=== PATIENT | male | born 1950 | race Caucasian/White ===

== ENCOUNTER 2016-06-13 08:29 | Day surgery (SDC) | payer OTHER, BC ==
[2016-06-13 09:02] VITALS: BMI 40.1
[2016-06-13] MEDS ORDERED: PROPOFOL 60 ML ONE (10:01)
[2016-06-13] MEDS ORDERED: LIDOCAINE HCL/PF 2% SDV 5ML VIAL ONE (10:01)
[2016-06-13 10:55] VITALS: TEMP 97.8
[2016-06-13 12:03] VITALS: BP 127/88; PULSE 61
--- NOTE | 2016-06-14 13:16 | PATH ---
Surgical Pathology Report Patient Name: ELDON GUERRA [facility]. Rec. #: [id number] /Age/Gender: 1950 (Age: 66) / M Account: [id number] Location: [facility]-ENDOSCOPY Taken: 06/13/2016 Received: 06/13/2016 Reported: 06/14/2016 Physicians: Davonte Noonan D.O. Specimen(s) Received A: BX DUODENAL BULB POLYP B: POLYP GASTRIC BODY OF STOMACH C: BX EROSION OF BODY OF STOMACH D: BX DISTAL ESOPHAGUS E: POLYPS DISTAL TRANSVERSE Clinical History Rule out reflux and fundic polyps Gastric polyps, gastritis, duodenal polyp, rule out Pyle's, colon polyps Final Diagnosis A. 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 NO DYSPLASIA/ADENOMA IDENTIFIED. B. STOMACH, BODY, POLYP, POLYPECTOMY: GASTRIC OXYNTIC MUCOSA WITH FUNDIC GLAND POLYP AND MODERATE CHRONIC GASTRITIS. IMMUNOSTAIN FOR H. PYLORI IS NEGATIVE FOR ORGANISMS. C. STOMACH, BODY, EROSION, BIOPSY: GASTRIC OXYNTIC MUCOSA WITH MILD TO MODERATE CHRONIC GASTRITIS WITH FOCAL SURFACE EROSION. IMMUNOSTAIN FOR H. PYLORI IS NEGATIVE FOR ORGANISMS. D. ESOPHAGUS, DISTAL, BIOPSY: SQUAMOCOLUMNAR JUNCTIONAL MUCOSA WITH CHRONIC INFLAMMATION AND REFLUX TYPE CHANGES. NO INTESTINAL METAPLASIA (PYLE'S ESOPHAGUS) IDENTIFIED. E. COLON, DISTAL TRANSVERSE, POLYPS, POLYPECTOMY: TUBULAR ADENOMA. SEPARATE FRAGMENT OF COLONIC MUCOSA WITH HYPERPLASTIC CHANGE. Electronically Signed Zechariah Perez M.D. Gross Description A. Received in formalin, labeled "biopsy duodenal bulb polyp" is a salgado, irregular portion of soft tissue measuring 0.1 cm in greatest dimension. The specimen is submitted in toto in one cassette. B. Received in formalin, labeled "polyp gastric body of stomach" is a salgado, irregular portion of soft tissue measuring 0.5 cm in greatest dimension. The specimen is submitted in toto in one cassette. C. Received in formalin, labeled "biopsy erosion body of stomach" is a salgado, irregular portion of soft tissue measuring 0.3 cm in greatest dimension. The specimen is submitted in toto in one cassette. D. Received in formalin, labeled "biopsy distal esophagus" is a salgado, irregular portion of soft tissue measuring 0.2 cm in greatest dimension. The specimen is submitted in toto in one cassette. E. Received in formalin, labeled "polyps distal transverse" are 2 salgado, irregular portions of soft tissue measuring 0.3 and 0.4 cm in greatest dimension. The specimens are submitted in toto in one cassette. 06/13/201606/13/2016
== END 2016-06-13 12:11 | disposition home or self-care (01) ==
LOC: JASU-ENDO 08:29
PROVIDERS: ATTEND Internal Medicine Gastroenterology
PROC: 0DB68ZX Excision of Stomach, Via Natural or Artificial Opening Endoscopic, Diagnostic (ICD-10-PCS; 2016-06-13)
PROC: 0DB98ZX Excision of Duodenum, Via Natural or Artificial Opening Endoscopic, Diagnostic (ICD-10-PCS; 2016-06-13)
PROC: 0DB48ZX Excision of Esophagogastric Junction, Via Natural or Artificial Opening Endoscopic, Diagnostic (ICD-10-PCS; 2016-06-13)
PROC: 0DBL8ZX Excision of Transverse Colon, Via Natural or Artificial Opening Endoscopic, Diagnostic (ICD-10-PCS; principal; 2016-06-13 10:00)
DX: Z12.11 Encounter for screening for malignant neoplasm of colon (principal); Z80.0 Family history of malignant neoplasm of digestive organs; D12.3 Benign neoplasm of transverse colon; K64.8 Other hemorrhoids; K31.7 Polyp of stomach and duodenum; K25.9 Gastric ulcer, unspecified as acute or chronic, without hemorrhage or perforation
CPT/HCPCS: 88305-TC; 88342-TC

== ENCOUNTER 2017-11-05 11:21 | Observation (INO) | payer OTHER, BC ==
[2017-11-05 11:33] VITALS: BMI 37.3
--- NOTE | 2017-11-05 11:40 | PDOC ---
History of Present Illness <Linda Baker - Last Filed: 11/05/17 13:50> <Rudy Huynh - Last Filed: 11/05/17 14:04> - General Chief Complaint: Chest Pain Stated Complaint: CHEST PAIN Time Seen by Provider: 11/05/17 11:39 - History of Present Illness Initial Comments: The patient is a 67 year old male, with a significant past medical history of HTN, AFIB S/P stent and pacemaker (on Plavix and Eliquis), HLD, GERD, sleep apnea, CKD, and prostate hypertrophy, who presents with midsternal chest tenderness and SOB for 2 days. The patient states that 2 days ago he began experiencing intermittent chest pain and discomfort that he describes as a heaviness and lasted for about 10-15 minutes. He states that it went away and came back this morning. This morning he also experienced associated shortness of breath when he woke up this morning and states that it resolved after walking around a bit. Denies recent rectal bleeding, denies hematuria, denies swelling in legs. PCP: Dr. Dasilva Responder: Dr. Pop (Dr. Mar is software sales consultant today) Social Hx: denies EtOH or smoking hx. Allergies: none (Linda Baker) Past History <Linda Baker - Last Filed: 11/05/17 13:50> - Past Medical History Anemia: No Asthma: No Cancer: No Cardiac Disorders: Yes (A FIB, CARDIAC STENTS X2) CVA: No COPD: No CHF: No DVT: No Dementia: No Diabetes: No GI Disorders: Yes (GERD,HIATAL HERNIA) Disorders: Yes (BPH) HTN: Yes Hypercholesterolemia: Yes Liver Disease: No Seizures: No Thyroid Disease: No - Surgical History Abdominal Surgery: Yes (HERNIA REPAIR) Appendectomy: No Cardiac Surgery: Yes (PM 03/31, STENT 05/01) Cholecystectomy: No Lung Surgery: No Neurologic Surgery: No Orthopedic Surgery: Yes (ARTHROSCOPY LEFT KNEE) - Immunization History Immunization Up to Date: Yes - Suicide/Smoking/Psychosocial Hx Smoking History: Never smoked Have you smoked in the past 12 months: No Information on smoking cessation initiated: No Hx Alcohol Use: No Drug/Substance Use Hx: No Substance Use Type: None Hx Substance Use Treatment: No <Rudy Huynh - Last Filed: 11/05/17 14:04> - Past Medical History Allergies/Adverse Reactions: Allergies Allergy/AdvReac Type Severity Reaction Status Date / Time No Known Drug Allergies Allergy Verified 11/05/17 11:29 Home Medications: Ambulatory Orders Amlodipine Besylate [Norvasc -] 5 mg PO DAILY 05/04/15 Clopidogrel Bisulfate [Plavix -] 75 mg PO DAILY 05/04/15 Doxazosin Mesylate [Cardura] 4 mg PO ACDIN 05/04/15 Rosuvastatin [Crestor -] 5 mg PO HS tablet 05/06/15 Furosemide [Lasix -] 20 mg PO DAILY 11/02/15 Isosorbide Mononitrate [Imdur -] 30 mg PO DAILY 11/02/15 Metoprolol Succinate [Toprol Xl] 50 mg PO BID 06/12/16 Apixaban [Eliquis -] 2.5 mg PO BID #60 tablet 06/13/16 Ranitidine HCl [Zantac] 150 mg PO BID PRN #0 tablet 06/13/16 Cardiac Specific PMH - Complaint Specific PMHX Pacemaker: Yes <Rudy Huynh - Last Filed: 11/05/17 14:04> Review of Systems <iLnda Baker - Last Filed: 11/05/17 13:50> <Rudy Huynh - Last Filed: 11/05/17 14:04> - Review of Systems Comments:: CONSTITUTIONAL: No fever, no chills, no fatigue EYES: No visual changes ENT: No ear pain, no sore throat CARDIOVASCULAR: +chest pain, no palpitations RESPIRATORY: No cough, +SOB GI: No abdominal pain, no nausea, no vomiting, no constipation, no diarrhea GENITOURINARY: No dysuria, no frequency, no hematuria MUSKULOSKELETAL: No back pain, no joint pain, no myalgias SKIN: No rash NEURO: No headache (Linda Baker) *Physical Exam <Linda Baker - Last Filed: 11/05/17 13:50> <Rudy Huynh - Last Filed: 11/05/17 14:04> - Vital Signs Last Vital Signs Temp Pulse Resp BP Pulse Ox 98.8 F 60 16 127/76 97 11/05/17 11:29 11/05/17 11:29 11/05/17 11:29 11/05/17 11:29 11/05/17 11:29 - Physical Exam Comments: CONSTITUTIONAL: Well-appearing; well-nourished; in no apparent distress HEAD: Normocephalic; atraumatic EYES: PERRL; EOM intact ENMT: External appears normal; normal oropharynx NECK: Supple; nontender; no cervical lymphadenopathy CARD: Normal S1, S2; no murmurs, rubs, or gallops RESP: Normal chest excursion with respiration; breath sounds clear and equal bilaterally; no wheezes, rhonchi, or rales ABD: Soft, obese, non-distended; non-tender; no palpable organomegaly, no palpable hernias EXT: Normal ROM in all four extremities; non-tender to palpation; distal pulses intact SKIN: Warm, dry, no rash NEURO: No focal neurological deficiencies. (Linda Baker) Heart Score/ECG Review - History History: Highly suspicious - Electrocardiogram EKG: Non specific repolarization disturbance - Age Age: >/= 65 - Risk Factors Risk Factors Heart Score: Yes Hx Hypercholesterolemia, Yes Hx Hypertension, Yes Hx Obesity Based on the list above the patient has:: >/=3 risk factors or Hx atherosclerotic disease - Troponin Troponin: </= normal limit - Score Heart Score - Total: 7 <Rudy Huynh - Last Filed: 11/05/17 14:04> ED Treatment Course - LABORATORY CBC & Chemistry Diagram: 11/05/17 12:36 11/05/17 12:36 - Additional Consults Time Called: 13:30 (Paged [facility] overhead) Time Called: 13:50 (Called service, awaiting callback) Consult[facility]PCP: [facility] <Linda Baker - Last Filed: 11/05/17 13:50> - LABORATORY CBC & Chemistry Diagram: 11/05/17 12:36 11/05/17 12:36 <Rudy Huynh - Last Filed: 11/05/17 14:04> - ADDITIONAL ORDERS Additional order review: Laboratory Results 11/05/17 11/05/17 12:36 12:36 PT with INR 12.70 INR 1.12 H Sodium 144 Potassium 4.2 Chloride 109 H Carbon Dioxide 25 Anion Gap 10 BUN 30 H Creatinine 1.5 H Creat Clearance w eGFR 46.68 Random Glucose 100 Calcium 8.8 Total Bilirubin 0.5 AST 21 D ALT 32 D Alkaline Phosphatase 76 Creatine Kinase 133 Troponin I < 0.02 Total Protein 6.9 Albumin 3.6 11/05/17 12:36 RBC 5.42 MCV 88.6 MCHC 34.0 RDW 14.3 MPV 8.3 Neutrophils % 71.2 Lymphocytes % 16.9 D Monocytes % 8.9 Eosinophils % 2.0 Basophils % 1.0 - RADIOLOGY Radiology Studies Ordered: Category Date Time Status CHEST X-RAY PORTABLE* [RAD] Stat Radiology 11/05/17 11:40 Completed Medical Decision Making <Linda Baker - Last Filed: 11/05/17 13:50> <Rudy Huynh - Last Filed: 11/05/17 14:04> - Medical Decision Making 11/05/17 14:01 Patient is a 67-year-old male with history of CAD, pacemaker placement, hypertension, hypercholesterolemia who presents with signs and symptoms of unstable angina. In the ED, patient is asymptomatic. EKG shows diffuse T wave inversions in the inferior and precordial leads which are unchanged from previous P-wave axis appears to be changed in the precordial leads when compared to previous EKG. First set of cardiac enzymes is within normal limit. Chest x-ray reveals no evidence of infiltrate or effusion. Patient's taken his Plavix and aliquots. Patient's heart score is noted to be 7. I discussed the case with Dr. Mar of cardiology. We'll administer aspirin. Will admit patient to telemetry for unstable angina further evaluation. (Rudy Huynh) *DC/Admit/Observation/Transfer <Linda Baker - Last Filed: 11/05/17 13:50> - Discharge Dispostion Decision to Admit order: Yes <Rudy Huynh - Last Filed: 11/05/17 14:04> Diagnosis at time of Disposition: Acute coronary syndrome - Discharge Dispostion Condition at time of disposition: Fair - Referrals Referrals: Ren Tapia MD [Primary Care Provider] - - Attestations Scribe Attestion: 11/05/17 12:14 Documentation prepared by Linda Baker, acting as medical affairs specialist for Rudy Huynh MD. (Linda Baker) Physician Attestion: 11/05/17 14:01 The documentation was prepared by the scribe under my direct supervision. I have reviewed the documentation which correctly represents the findings, medical decision-making and critical action taken by me. (Rudy Huynh)
[2017-11-05 12:47] LABS: HEMATOCRIT 48.1 % (35.4-49); HEMOGLOBIN 16.3 GM/dL (11.7-16.9); LYMPH % 16.9 % (8-40); MCH 30.1 pg (25.7-33.7); MEAN CELL VOLUME 88.6 fl (80-96); MEAN PLT VOLUME 8.3 fl (7.5-11.1); MONO % 8.9 % (3.8-10.2); NEUT % 71.2 % (42.8-82.8); PLATELET COUNT 196 K/MM3 (134-434); RBC 5.42 M/mm3 (4.00-5.60); RDW 14.3 % (11.9-15.9); WHITE BLOOD COUNT 7.2 K/mm3 (4.0-10.0)
[2017-11-05 12:58] LABS: INR 1.12 (0.83-1.09); PROTHROMBIN TIME (PATIENT) 12.7 SEC (9.7-13.0)
[2017-11-05 13:12] LABS: ALBUMIN 3.6 g/dl (3.4-5.0); ANION GAP 10 MMOL/L (8-16); BILIRUBIN,TOTAL 0.5 mg/dL (0.2-1.0); BLOOD UREA NITROGEN 30 mg/dL (7-18); CALCIUM 8.8 mg/dL (8.5-10.1); CHLORIDE 109 mmol/L (98-107); CO2 25 mmol/L (21-32); CREATININE 1.5 mg/dL (0.7-1.3); GLUCOSE,RANDOM 100 mg/dL (74-106); POTASSIUM 4.2 mmol/L (3.5-5.1); SGOT/AST 21 U/L (15-37); SGPT/ALT 32 U/L (12-78); SODIUM 144 mmol/L (136-145); TOT PROT 6.9 g/dl (6.4-8.2)
[2017-11-05 13:14] LABS: ALK PHOS 76 U/L (45-117)
[2017-11-05] MEDS ORDERED: ASPIRIN 81 MG CHEWABLE TABLETS PO ONE (13:42)
--- NOTE | 2017-11-05 14:32 | CON.CARD ---
Consult Consult Specialty:: cardiology - History of Present Illness History of Present Illness: The patient is a 67 year old white male, with a significant past medical history of HTN, AFIB, S/P coronary stent and pacemake (2015 recently interrogated)r (on Plavix and Eliquis), HLD, GERD, sleep apnea, CKD, and prostate hypertrophy, who presents with midsternal chest tenderness and SOB for 2 days. The patient states that 2 days ago he began experiencing intermittent chest pain and discomfort that he describes as a heaviness and lasted for about 10-15 minutes. He states that it went away and came back this morning. This morning he also experienced associated shortness of breath when he woke up this morning and states that it resolved after walking around a bit. Denies recent rectal bleeding, denies hematuria, denies swelling in legs. PCP: Dr. Dasilva [employer] Supervisor: Dr. Pop (Dr. Mar is assistant construction superintendent today) Social Hx: denies EtOH or smoking hx. Allergies: none - History Source History Provided By: Patient, Medical Record Limitations to Obtaining History: No Limitations - Past Medical History Cardio/Vascular: Yes: AFIB, CAD (s/p LM stent), HTN, Hyperlipdemia, Other ( Right bundle branch block (chronic), pericardial effusion, PJ thrombus) Pulmonary: Yes: Sleep Apnea Gastrointestinal: Yes: GERD Renal/: Yes: BPH, Hematuria - Past Surgical History Past Surgical History: Yes: Hernia Repair, Stent - Alcohol/Substance Use Hx Alcohol Use: No - Smoking History Smoking history: Never smoked Have you smoked in the past 12 months: No - Social History ADL: Independent History of Recent Travel: No Home Medications - Allergies Allergies/Adverse Reactions: Allergies Allergy/AdvReac Type Severity Reaction Status Date / Time No Known Drug Allergies Allergy Verified 11/05/17 11:29 - Home Medications Home Medications: Ambulatory Orders Amlodipine Besylate [Norvasc -] 5 mg PO DAILY 05/04/15 Clopidogrel Bisulfate [Plavix -] 75 mg PO DAILY 05/04/15 Doxazosin Mesylate [Cardura] 4 mg PO DAILY 05/04/15 Rosuvastatin [Crestor -] 5 mg PO HS tablet 05/06/15 Furosemide [Lasix -] 20 mg PO DAILY 11/02/15 Isosorbide Mononitrate [Imdur -] 30 mg PO DAILY 11/02/15 Metoprolol Succinate [Toprol Xl] 50 mg PO BID 06/12/16 Ranitidine HCl [Zantac] 150 mg PO BID PRN #0 tablet 06/13/16 Apixaban [Eliquis -] 5 mg PO BID 11/05/17 Cholecalciferol (Vitamin D3) [Vitamin D3] 5,000 unit PO DAILY 11/05/17 Icosapent Ethyl [Vascepa] 1 gm PO BID 11/05/17 Vital Signs: Vital Signs Temperature 98.8 F 11/05/17 11:29 Pulse Rate 60 11/05/17 11:29 Respiratory Rate 16 11/05/17 11:29 Blood Pressure 127/76 11/05/17 11:29 O2 Sat by Pulse Oximetry (%) 97 11/05/17 11:29 - Other Data Labs, Other Data: CBC, BMP 11/05/17 12:36 11/05/17 12:36 INR, PTT INR 1.12 (0.83-1.09) H 11/05/17 12:36 Troponin, BNP 11/05/17 12:36 Troponin I < 0.02 Troponin, BNP 11/05/17 12:36 Troponin I < 0.02 Problem List - Problems (1) Acute coronary syndrome Assessment/Plan: TNI < 0.02; f/u serially. EKG; pacemaker rhythm Plan for Lexiscan stress MIBI in am (pt with PPM; on metoprolol; no hx bronchial asthma). Code(s): I24.9 - ACUTE ISCHEMIC HEART DISEASE, UNSPECIFIED (2) On anticoagulant therapy Code(s): Z79.01 - POLE MAKER (CURRENT) USE OF ANTICOAGULANTS (3) Atrial fibrillation Assessment/Plan: on metoprolol for HR control. On apixaban for anticoagulation. Code(s): I48.91 - UNSPECIFIED ATRIAL FIBRILLATION (4) HLD (hyperlipidemia) Assessment/Plan: f/u lipid panel. Code(s): E78.5 - HYPERLIPIDEMIA, UNSPECIFIED (5) HTN (hypertension) Code(s): I10 - ESSENTIAL (PRIMARY) HYPERTENSION (6) History of permanent cardiac pacemaker placement Code(s): Z95.0 - PRESENCE OF CARDIAC PACEMAKER
[2017-11-05] MEDS ORDERED: RANITIDINE HCL 150 MG TABLET (FP) PO PRN (15:01)
[2017-11-05] MEDS ORDERED: amLODIPine BESYLATE 2.5 MG TABLET (FP) PO SCH (15:15)
[2017-11-05] MEDS: ISOSORBIDE MONONITRATE 30 MG TAB.SR.24H (FP) PO SCH (15:24)
[2017-11-05] MEDS: DOXAZOSIN MESYLATE 4 MG TABLET PO SCH (15:24)
[2017-11-05] MEDS: FUROSEMIDE 20 MG TABLET (FP) PO SCH (15:24)
[2017-11-05] MEDS: CLOPIDOGREL BISULFATE 75 MG TABLET (FP) PO SCH (15:24)
[2017-11-05] MEDS ORDERED: amLODIPine BESYLATE 5 MG TABLET (FP) PO SCH (15:28)
[2017-11-05] MEDS ORDERED: ASPIRIN 81 MG CHEWABLE TABLETS ONE (16:31)
--- NOTE | 2017-11-05 17:13 | ECHO ---
Name: ELDON GUERRA Exam:Adult Echocardiogram Study Date: 11/05/2017 03:34 PM Age: 67 yrs Reason For Study: CHEST PAIN Height: 70 in Weight: 260 lb BSA: 2.3 m2 MMode/2D Measurements & Calculations IVSd: 1.1 cm Ao root diam: 2.8 cm LVIDd: 4.9 cm LA dimension: 4.0 cm LVIDs: 3.6 cm LVPWd: 0.91 cm EDV(Teich): 115.4 ml ESV(Teich): 54.8 ml Doppler Measurements & Calculations MV E max roni: 61.7 cm/sec TR max roni: 174.7 cm/sec MV A max roni: 61.2 cm/sec TR max P.2 mmHg MV E/A: 1.0 MV dec time: 0.17 sec Left Ventricle The left ventricle is normal in size. The left ventricular ejection fraction is normal. Ejection Frac tion = 55%. The left ventricular wall motion is normal. Right Ventricle The right ventricular systolic function is grossly normal. Atria Borderline left atrial enlargement. Mitral Valve There is trace mitral regurgitation. Tricuspid Valve There is Trace to mild tricuspid regurgitation. Aortic Valve Mild aortic regurgitation. Great Vessels The aortic root is normal size. Pericardium/Pleura There is no pericardial effusion. Interpretation Summary The left ventricular ejection fraction is normal. Ejection Fraction = 55%. The left ventricular wall motion is normal. The right ventricular systolic function is grossly normal. Borderline left atrial enlargement. There is trace mitral regurgitation. There is Trace to mild tricuspid regurgitation. Mild aortic regurgitation. The aortic root is normal size. There is no pericardial effusion. Davonte Mar MD 11/05/2017 05:12 PM
--- NOTE | 2017-11-05 17:22 | HP ---
Admitting History and Physical - Primary Care Physician PCP: Ren Tapia (Annabi,Iyad) - Admission Chief Complaint: Chest Pain History of Present Illness: Mr Schwartz is a pleasant 67 year old male, with a significant past medical history of HTN, AFIB S/P stent and pacemaker (on Plavix and Eliquis), HLD, GERD , sleep apnea, CKD, and prostate hypertrophy, who presents with intermittent midsternal chest pressure and SOB for 2 days. The patient states that 2 days ago he began experiencing intermittent chest discomfort described as pressure and lasted for about 10-15 minutes. He states that it went away and came back this morning. This morning he also experienced associated shortness of breath when he woke up this morning and states that it resolved after walking around a bit. Chest pressure and SOB did not get effected by the level of his activity Denies recent rectal bleeding, denies hematuria, denies swelling in legs. History Source: Patient Limitations to Obtaining History: No Limitations - Past Medical History Cardiovascular: Yes: AFIB, CAD (s/p LM stent), HTN, Hyperlipdemia, Other (Right bundle branch block (chronic), pericardial effusion, PJ thrombus) Pulmonary: Yes: Sleep Apnea Gastrointestinal: Yes: GERD Renal/: Yes: BPH, Hematuria Heme/Onc: Yes: Other (Erythrocytosis, chronic.) - Past Surgical History Past Surgical History: Yes: Hernia Repair, Stent - Smoking History Smoking history: Never smoked Have you smoked in the past 12 months: No - Alcohol/Substance Use Hx Alcohol Use: No - Social History ADL: Independent History of Recent Travel: No Home Medications - Allergies Allergies/Adverse Reactions: Allergies Allergy/AdvReac Type Severity Reaction Status Date / Time No Known Drug Allergies Allergy Verified 11/05/17 11:29 - Home Medications Home Medications: Ambulatory Orders Amlodipine Besylate [Norvasc -] 5 mg PO DAILY 05/04/15 Clopidogrel Bisulfate [Plavix -] 75 mg PO DAILY 05/04/15 Doxazosin Mesylate [Cardura] 4 mg PO DAILY 05/04/15 Rosuvastatin [Crestor -] 5 mg PO HS tablet 05/06/15 Furosemide [Lasix -] 20 mg PO DAILY 11/02/15 Isosorbide Mononitrate [Imdur -] 30 mg PO DAILY 11/02/15 Metoprolol Succinate [Toprol Xl] 50 mg PO BID 06/12/16 Ranitidine HCl [Zantac] 150 mg PO BID PRN #0 tablet 06/13/16 Apixaban [Eliquis -] 5 mg PO BID 11/05/17 Cholecalciferol (Vitamin D3) [Vitamin D3] 5,000 unit PO DAILY 11/05/17 Icosapent Ethyl [Vascepa] 1 gm PO BID 11/05/17 Review of Systems - Review of Systems Constitutional: reports: No Symptoms Eyes: reports: No Symptoms HENT: reports: No Symptoms Neck: reports: No Symptoms Cardiovascular: reports: Shortness of Breath, Other (Chest pressure) Respiratory: reports: SOB Gastrointestinal: reports: No Symptoms Genitourinary: reports: No Symptoms Breasts: reports: No Symptoms Reported Musculoskeletal: reports: No Symptoms Integumentary: reports: No Symptoms Neurological: reports: No Symptoms Endocrine: reports: No Symptoms Hematology/Lymphatic: reports: No Symptoms Psychiatric: reports: No Symptoms Physical Examination Vital Signs: Vital Signs Temperature 98.0 F 11/05/17 15:02 Pulse Rate 60 11/05/17 15:02 Respiratory Rate 16 11/05/17 15:02 Blood Pressure 130/62 11/05/17 15:02 O2 Sat by Pulse Oximetry (%) 100 11/05/17 15:02 Constitutional: Yes: Well Nourished, No Distress, Calm, Obese Cardiovascular: Yes: Regular Rate and Rhythm Respiratory: Yes: Regular Gastrointestinal: Yes: Normal Bowel Sounds, Soft, Abdomen, Obese Musculoskeletal: Yes: WNL Extremities: Yes: WNL Edema: No Peripheral Pulses WNL: Yes Neurological: Yes: Alert, Oriented Psychiatric: Yes: Alert, Oriented Labs: CBC, BMP 11/05/17 12:36 11/05/17 12:36 Imaging - Results Chest X-ray: Report Reviewed Other: Other (Echo: EF: 55%, mild aortic regurgitaion, Trace mitral regurgitation, trace to mild tricuspid regurgitation, No aortic root dilation or pericardial effusion) Problem List - Problems (1) CAD (coronary artery disease) Assessment/Plan: -Plavix 75 mg po daily -ASA 81 mg po daily -Crestor 5 mg po HS -Metoprolol 50 mg po BID -Isosorbide 30 mg po daily -Doxazosin 4 mg po daily -Cardiology consult -Tele monitoring Code(s): I25.10 - ATHSCL HEART DISEASE OF [place] CORONARY ARTERY W/O ANG PCTRS Qualifiers: [place] vs. transplanted heart: [place] heart (2) Chest pressure Assessment/Plan: -Cardiology consult -Tele monitoring -First set of troponins negative, repeat 2 more sets Q8H -Echo-unremarkable -Stress test in AM-upon cardiology discretion, last stress test fall 2016 outpatient-was normal as per patient. Last recorded stress in the hospital in 2015 was abnormal Code(s): R07.89 - OTHER CHEST PAIN (3) CKD (chronic kidney disease) Assessment/Plan: -Cr at 1.5 -at baseline -monitor trend Code(s): N18.9 - CHRONIC KIDNEY DISEASE, UNSPECIFIED (4) On anticoagulant therapy Assessment/Plan: -For afib and PPM -Eliquis 5 mg po bid Code(s): Z79.01 - MACHINERY ERECTOR (CURRENT) USE OF ANTICOAGULANTS Assessment/Plan see problem list -If stress test normal, may be discharged tomorrow
--- NOTE | 2017-11-05 20:11 | EKG ---
Test Reason : Blood Pressure : / mmHG Vent. Rate : 060 BPM Atrial Rate : 060 BPM P-R Int : 168 ms QRS Dur : 110 ms QT Int : 428 ms P-R-T Axes : 035 016 -42 degrees QTc Int : 428 ms Atrial-paced rhythm INCOMPLETE RIGHT BUNDLE BRANCH BLOCK ABNORMAL ECG WHEN COMPARED WITH ECG OF 05-MAY-2015 12:53, INCOMPLETE RIGHT BUNDLE BRANCH BLOCK HAS REPLACED RIGHT BUNDLE BRANCH BLOCK Confirmed by BRITTNEE NORMAN, CLEMENTE ([id number]) on 11/05/2017 8:11:05 PM Referred By: Confirmed By:CLEMENTE BEAULIEU MD
[2017-11-05 21:27] VITALS: PULSE 60
[2017-11-05] MEDS ORDERED: ROSUVASTATIN CA 5 MG TABLET (FP) PO SCH (22:00)
[2017-11-05] MEDS: APIXABAN 5 MG TABLET PO SCH (22:06)
[2017-11-06 07:45] LABS: BASO % 1.2 % (0-2.0); EOS % 3.5 % (0-4.5); HEMATOCRIT 45.2 % (35.4-49); HEMOGLOBIN 15.3 GM/dL (11.7-16.9); LYMPH % 20.8 % (8-40); MEAN CELL VOLUME 88.2 fl (80-96); MONO % 11.4 % (3.8-10.2); NEUT % 63.1 % (42.8-82.8); PLATELET COUNT 145 K/MM3 (134-434); RBC 5.12 M/mm3 (4.00-5.60); RDW 14.6 % (11.9-15.9); WHITE BLOOD COUNT 5.9 K/mm3 (4.0-10.0)
--- NOTE | 2017-11-06 08:06 | PN ---
Progress Note, Physician History of Present Illness: no cp - Current Medication List Current Medications: Active Medications Amlodipine Besylate (Norvasc -) 5 mg PO DAILY [facility] Apixaban (Eliquis -) 5 mg PO BID [facility] Last Admin: 11/05/17 22:06 Dose: 5 mg Clopidogrel Bisulfate (Plavix -) 75 mg PO DAILY [facility] Last Admin: 11/05/17 15:24 Dose: 75 mg Doxazosin Mesylate (Cardura -) 4 mg PO DAILY [facility] Last Admin: 11/05/17 15:24 Dose: 4 mg Furosemide (Lasix -) 20 mg PO DAILY [facility] Last Admin: 11/05/17 15:24 Dose: 20 mg Isosorbide Mononitrate (Imdur -) 30 mg PO DAILY [facility] Last Admin: 11/05/17 15:24 Dose: 30 mg Metoprolol Succinate (Toprol Xl -) 50 mg PO BID [facility] Last Admin: 11/05/17 22:06 Dose: 50 mg Ranitidine HCl (Zantac -) 150 mg PO BID PRN PRN Reason: HEARTBURN Rosuvastatin Calcium (Crestor -) 5 mg PO HS [facility] Last Admin: 11/05/17 22:05 Dose: 5 mg - Objective Vital Signs: Vital Signs Temperature 97.8 F 11/06/17 02:00 Pulse Rate 60 11/06/17 06:00 Respiratory Rate 20 11/06/17 06:00 Blood Pressure 130/90 11/06/17 06:00 O2 Sat by Pulse Oximetry (%) 95 11/05/17 20:55 Cardiovascular: Yes: Regular Rate and Rhythm Respiratory: Yes: Regular, CTA Bilaterally Gastrointestinal: Yes: Normal Bowel Sounds, Soft Labs: CBC, BMP 11/06/17 07:00 INR, PTT INR 1.12 (0.83-1.09) H 11/05/17 12:36 Assessment/Plan - Problems (1) CAD (coronary artery disease) Assessment/Plan: -Plavix 75 mg po daily -ASA 81 mg po daily -Crestor 5 mg po HS -Metoprolol 50 mg po BID -Isosorbide 30 mg po daily -Doxazosin 4 mg po daily -Cardiology consult noted -Tele monitoring -Stress Test Code(s): I25.10 - ATHSCL HEART DISEASE OF [place] CORONARY ARTERY W/O ANG PCTRS Qualifiers: [place] vs. transplanted heart: [place] heart (2) Chest pressure Assessment/Plan: -Cardiology consult -Tele monitoring -First set of troponins negative, repeat 2 more sets Q8H -Echo-unremarkable -Stress test last stress test fall 2016 outpatient-was normal as per patient. Last recorded stress in the hospital in 2016 was abnormal Code(s): R07.89 - OTHER CHEST PAIN (3) CKD (chronic kidney disease) Assessment/Plan: -Cr at 1.5 -at baseline -monitor trend Code(s): N18.9 - CHRONIC KIDNEY DISEASE, UNSPECIFIED (4) On anticoagulant therapy Assessment/Plan: -For afib and PPM -Eliquis 5 mg po bid Code(s): Z79.01 - LONGTERM (CURRENT) USE OF ANTICOAGULANTS
[2017-11-06 08:21] LABS: ALBUMIN 3.1 g/dl (3.4-5.0); ANION GAP 8 MMOL/L (8-16); BLOOD UREA NITROGEN 24 mg/dL (7-18); CALCIUM 8.2 mg/dL (8.5-10.1); CHLORIDE 109 mmol/L (98-107); CO2 27 mmol/L (21-32); POTASSIUM 3.8 mmol/L (3.5-5.1); SODIUM 144 mmol/L (136-145)
[2017-11-06 08:26] LABS: ALK PHOS 59 U/L (45-117); BILIRUBIN,TOTAL 0.6 mg/dL (0.2-1.0); CHOLESTEROL 143 mg/dL (50-200); CREATININE 1.4 mg/dL (0.7-1.3); GLUCOSE,RANDOM 94 mg/dL (74-106); HDL CHOLESTEROL 39 mg/dL (40-60); SGOT/AST 17 U/L (15-37); SGPT/ALT 27 U/L (12-78); TOT PROT 6.2 g/dl (6.4-8.2); TRIGLYCERIDES 84 mg/dL (35-160)
[2017-11-06] MEDS ORDERED: REGADENOSON 0.4 MG/5 ML PRE-FILLED SYRINGE IVPUSH ONE ×2 (10:00→10:25)
[2017-11-06] MEDS ORDERED: PT OWN MED DRAWER 7, Y5N ONE (13:13)
[2017-11-06] MEDS: APIXABAN 5 MG TABLET PO SCH (13:17)
[2017-11-06] MEDS: ISOSORBIDE MONONITRATE 30 MG TAB.SR.24H (FP) PO SCH (13:50)
[2017-11-06] MEDS: DOXAZOSIN MESYLATE 4 MG TABLET PO SCH (13:50)
[2017-11-06] MEDS: CLOPIDOGREL BISULFATE 75 MG TABLET (FP) PO SCH (13:51)
[2017-11-06] MEDS: FUROSEMIDE 20 MG TABLET (FP) PO SCH (13:51)
[2017-11-06 14:12] VITALS: BP 128/83; TEMP 98.4
== END 2017-11-06 15:40 | disposition home or self-care (01) ==
LOC: JER 11:21 → JERBED 14:04 → UNDOADMOB 14:04 → INTOOBSV 14:04 → JERBED 15:02 → J4W 18:19
PROVIDERS: ADMIT Family Medicine; ATTEND Family Medicine
PROC: 3E033GC Introduction of Other Therapeutic Substance into Peripheral Vein, Percutaneous Approach (ICD-10-PCS; principal; 2017-11-05)
DX: I24.9 Acute ischemic heart disease, unspecified (principal); I12.9 Hypertensive chronic kidney disease with stage 1 through stage 4 chronic kidney disease, or unspecified chronic kidney disease; N18.9 Chronic kidney disease, unspecified; I48.91 Unspecified atrial fibrillation; E78.5 Hyperlipidemia, unspecified; K21.9 Gastro-esophageal reflux disease without esophagitis; G47.30 Sleep apnea, unspecified; N40.0 Benign prostatic hyperplasia without lower urinary tract symptoms; I25.10 Atherosclerotic heart disease of native coronary artery without angina pectoris; Z79.01 Long term (current) use of anticoagulants; Z95.0 Presence of cardiac pacemaker; Z95.5 Presence of coronary angioplasty implant and graft
CPT/HCPCS: 36415; 71045-TC-FY; 78452-TC; 80053; 80061; 82550; 83036; 83721; 84443; 84484; 85025; 85610; 93005; 93010; 93017; 93306-TC; 96374; 99285-25; A9502; G0378; J2785